=== PATIENT | female | born 1995 | race Caucasian/White ===

== ENCOUNTER 2016-11-18 08:56 | Emergency (ER) | payer BC ==
[~2016-11-18] VITALS: Ht 170.2 cm; Wt 65.9 kg
[2016-11-18 11:12] VITALS: BP 120/78
== END 2016-11-18 11:14 | disposition home or self-care (01) ==
LOC: EMS 08:59
DX: N90.7 Vulvar cyst (principal)
CPT/HCPCS: 99283

== ENCOUNTER 2017-01-14 19:03 | Emergency (ER) | payer BC ==
[~2017-01-14] VITALS: Ht 170.2 cm; Wt 65.5 kg
[2017-01-14] MEDS ORDERED: IBUPROFEN 600 MG TABLET PO ONE (20:00)
[2017-01-14 20:06] LABS: APPEARANCE,URINE CLEAR (CLEAR); GLUCOSE, URINE (UA) NEGATIVE (NEGATIVE); KETONES,URINE TRACE mg/dL (NEGATIVE); LEUKOCYTE ESTERASE ,URINE NEGATIVE (NEGATIVE); OCCULT BLOOD,URINE SMALL (NEGATIVE); PH,URINE 5.5 (5.0-8.0); PROTEIN,URINE NEGATIVE (NEGATIVE)
[2017-01-14 20:11] LABS: ADD UA MICROSCOPIC YES
[2017-01-14 20:12] LABS: SQUAMOUS EPITHELIAL CELL,UR Few /LPF (None Seen)
[2017-01-14 20:52] VITALS: BP 132/68
== END 2017-01-14 21:14 | disposition home or self-care (01) ==
LOC: EMS 19:05
DX: S70.01XA Contusion of right hip, initial encounter (principal); S70.12XA Contusion of left thigh, initial encounter; V03.90XA Pedestrian on foot injured in collision with car, pick-up truck or van, unspecified whether traffic or nontraffic accident, initial encounter; Y93.89 Activity, other specified; Y92.89 Other specified places as the place of occurrence of the external cause; Y99.8 Other external cause status
CPT/HCPCS: 73503; 99285